=== PATIENT | female | born 1965 | race Caucasian/White ===

== ENCOUNTER 2017-10-28 11:06 | Emergency (ER) | payer OTHER ==
[~2017-10-28] VITALS: Ht 157.5 cm; Wt 59.0 kg
[2017-10-28 11:16] VITALS: BP_SYST 164
[2017-10-28] MEDS ORDERED: LORazepam 1 MG TABLET PO ONE (11:30)
[2017-10-28 12:39] VITALS: BP_SYST 140
== END 2017-10-28 12:39 ==
LOC: SED 11:06
DX: F41.9 Anxiety disorder, unspecified (principal); F32.9 Major depressive disorder, single episode, unspecified; R03.0 Elevated blood-pressure reading, without diagnosis of hypertension; Z88.5 Allergy status to narcotic agent; Z88.6 Allergy status to analgesic agent
CPT/HCPCS: 93005; 99284

== ENCOUNTER 2018-01-07 20:04 | Emergency (ER) | payer OTHER ==
[~2018-01-07] VITALS: Ht 160 cm; Wt 81.6 kg
[2018-01-07 20:11] VITALS: BP_SYST 161
[2018-01-07] MEDS ORDERED: PROMETHAZINE HCL 25 MG/ML AMP IVP ONE (20:45)
[2018-01-07] MEDS ORDERED: KETOROLAC TROMETHAMINE 30 MG VIAL IVP ONE (20:45)
[2018-01-07] MEDS ORDERED: cloNIDine HCL 0.1 MG TABLET PO ONE (20:45)
[2018-01-07 20:54] LABS: BASOPHILS % (AUTO) 0.4 % (0.0-2.0); EOSINOPHILS # (AUTO) 0.1 K/uL (0.0-0.4); EOSINOPHILS % (AUTO) 1.6 % (0.0-4.0); HEMATOCRIT 45.6 % (36-48); HEMOGLOBIN 15.7 g/dL (12.0-16.0); LYMPHOCYTES # (AUTO) 1.6 K/uL (1.0-5.5); MEAN CORPUSCULAR HEMOGLOBIN 32 pg (27-31); MEAN CORPUSCULAR HGB CONC 34 % (32-36); MEAN CORPUSCULAR VOLUME 94 fL (79.0-98.0); MONOCYTES # (AUTO) 0.5 K/uL (0.0-1.0); MONOCYTES % (AUTO) 5.1 % (1.7-9.3); NEUTROPHILS # (AUTO) 6.7 K/uL (1.8-7.7); NEUTROPHILS % (AUTO) 74.9 % (40.0-70.0); PLATELET COUNT (AUTO) 174 K/uL (130-430); RED BLOOD CELL COUNT(AUTO) 4.85 MIL/uL (4.2-6.2); WHITE BLOOD COUNT (AUTO) 8.9 K/uL (4.8-10.8)
[2018-01-07 21:08] LABS: ANION GAP 12 (5-15); CALCIUM 8.9 mg/dL (8.4-11.0); CHLORIDE 102 mmol/L (98-107); GLUCOSE 159 mg/dL (70-99); POTASSIUM 3.6 mmol/L (3.5-5.1); SODIUM SERUM 138 mmol/L (136-145); UREA NITROGEN, BLOOD 13 mg/dL (8-21)
[2018-01-07 21:12] LABS: PROTHROMBIN TIME 10.6 SECS (9.5-12.5)
[2018-01-07 21:15] LABS: ALANINE AMINOTRANSFERASE 51 U/L (12-78); ALBUMIN 3.7 g/dL (3.4-4.8); ALCOHOL, BLOOD < 3 mg/dL (<10); ASPARTATE AMINOTRANSFERASE 38 U/L (10-37); GFR AFRICAN AMERICAN 61 mL/min (>90); LIPASE 291 U/L (73-393); TOTAL BILIRUBIN 0.6 mg/dL (0.0-1.0)
[2018-01-07 21:41] LABS: BILIRUBIN,URINE NEGATIVE (NEGATIVE); CLARITY/URINE CLEAR (CLEAR); COLOR,URINE YELLOW (YELLOW); GLUCOSE,URINE NEGATIVE (NEGATIVE); KETONES,URINE NEGATIVE (NEGATIVE); LEUKOCYTE ESTERASE ,URINE 1+ (NEGATIVE); NITRITE, URINE POSITIVE (NEGATIVE); PROTEIN URINE NEGATIVE (NEGATIVE); UROBILINOGEN,URINE 0.2 (0.2-1.0)
[2018-01-07 21:42] LABS: BLOOD, URINE TRACE (NEGATIVE)
[2018-01-07 22:06] LABS: BACTERIA,URINE MANY /HPF (None Seen); MUCUS,URINE 1+ /LPF (None Seen)
[2018-01-07 22:16] LABS: BARBITURATE, URINE NEGATIVE (NEG <=200); BENZODIAZEPINE, URINE POSITIVE (NEG <=150); CANNABINOID, URINE NEGATIVE (NEG <=50); COCAINE, URINE NEGATIVE (NEG <=150); METHAMPHETAMINES SCREEN,URINE NEGATIVE (NEG <=500); OPIATE, URINE NEGATIVE (NEG <=100); PHENCYCLIDINE SCREEN,URINE NEGATIVE (NEG <=25); UR TRICYCLIC ANTIDEPRESSANTS NEGATIVE (NEG <=300); URINE AMPHETAMINE NEGATIVE (NEG <=500); URINE METHADONE NEGATIVE (NEG <=200); URINE OXYCODONE SCREEN NEGATIVE (NEG <=100); URINE PROPOXYPHENE SCREEN NEGATIVE (NEG <=300)
[2018-01-07 22:40] VITALS: BP_SYST 158
== END 2018-01-07 22:40 | disposition home or self-care (01) ==
LOC: SED 20:04
DX: G44.209 Tension-type headache, unspecified, not intractable (principal); N39.0 Urinary tract infection, site not specified; I10 Essential (primary) hypertension; F41.9 Anxiety disorder, unspecified; F32.9 Major depressive disorder, single episode, unspecified; J45.909 Unspecified asthma, uncomplicated; Z88.6 Allergy status to analgesic agent; Z88.8 Allergy status to other drugs, medicaments and biological substances
CPT/HCPCS: 36415; 70450; 71045; 80053; 80307; 81000; 82550; 83690; 84484; 85025; 85610; 85730; 87086; 87186; 93005; 96374; 96375; 99285; G0482; J1885; J2550

== ENCOUNTER 2018-03-18 20:29 | Emergency (ER) | payer OTHER ==
[~2018-03-18] VITALS: Ht 160 cm; Wt 78.5 kg
[2018-03-18 20:38] VITALS: BP_SYST 155
[2018-03-18] MEDS ORDERED: NACL 0.9% 1,000 ML IV ONE (21:39)
[2018-03-18] MEDS ORDERED: ONDANSETRON HCL 4 MG/2 ML VIAL IVP ONE (21:45)
[2018-03-18 22:01] LABS: BASOPHILS # (AUTO) 0.1 K/uL (0.0-0.2); BASOPHILS % (AUTO) 0.6 % (0.0-2.0); EOSINOPHILS # (AUTO) 0.3 K/uL (0.0-0.4); EOSINOPHILS % (AUTO) 2.8 % (0.0-4.0); HEMATOCRIT 48.3 % (36-48); HEMOGLOBIN 16.5 g/dL (12.0-16.0); LYMPHOCYTES # (AUTO) 1.9 K/uL (1.0-5.5); MEAN CORPUSCULAR HEMOGLOBIN 32 pg (27-31); MEAN CORPUSCULAR HGB CONC 34 % (32-36); MEAN CORPUSCULAR VOLUME 95 fL (79.0-98.0); MONOCYTES # (AUTO) 0.5 K/uL (0.0-1.0); MONOCYTES % (AUTO) 5.6 % (1.7-9.3); NEUTROPHILS # (AUTO) 6.2 K/uL (1.8-7.7); PLATELET COUNT (AUTO) 167 K/uL (130-430); RED BLOOD CELL COUNT(AUTO) 5.08 MIL/uL (4.2-6.2)
[2018-03-18 22:07] LABS: CALCIUM 9.5 mg/dL (8.4-11.0); CREATININE 0.83 mg/dL (0.55-1.30); POTASSIUM 3.5 mmol/L (3.5-5.1)
[2018-03-18 22:13] LABS: ALBUMIN 3.9 g/dL (3.4-4.8); TOTAL BILIRUBIN 0.5 mg/dL (0.0-1.0)
[2018-03-18 22:32] LABS: BILIRUBIN,URINE NEGATIVE (NEGATIVE); CLARITY/URINE CLEAR (CLEAR); COLOR,URINE YELLOW (YELLOW); GLUCOSE,URINE NEGATIVE (NEGATIVE); KETONES,URINE NEGATIVE (NEGATIVE); LEUKOCYTE ESTERASE ,URINE TRACE (NEGATIVE); NITRITE, URINE NEGATIVE (NEGATIVE); PROTEIN URINE NEGATIVE (NEGATIVE); UROBILINOGEN,URINE 0.2 (0.2-1.0)
[2018-03-18 22:34] LABS: BLOOD, URINE TRACE (NEGATIVE)
[2018-03-18] MEDS: cloNIDine HCL 0.1 MG TABLET PO ONE ×2 (22:42→23:08)
[2018-03-18 22:44] LABS: BACTERIA,URINE RARE /HPF (None Seen)
[2018-03-18 22:45] LABS: MUCUS,URINE None Seen /LPF (None Seen); YEAST,URINE None Seen /HPF (None Seen)
[2018-03-18] MEDS ORDERED: cloNIDine HCL 0.1 MG TABLET ONE (23:12)
[2018-03-19 00:31] VITALS: BP_SYST 151
== END 2018-03-19 00:31 | disposition home or self-care (01) ==
LOC: SED 20:29
DX: G43.909 Migraine, unspecified, not intractable, without status migrainosus (principal); R11.2 Nausea with vomiting, unspecified; I10 Essential (primary) hypertension; F41.9 Anxiety disorder, unspecified; F32.9 Major depressive disorder, single episode, unspecified; J45.909 Unspecified asthma, uncomplicated; Z88.6 Allergy status to analgesic agent; Z88.8 Allergy status to other drugs, medicaments and biological substances
CPT/HCPCS: 36415; 80053; 81000; 85025; 96361; 96374; 99284; J2405; J7030

== ENCOUNTER 2018-12-19 19:09 | Emergency (ER) | payer OTHER ==
[~2018-12-19] VITALS: Ht 160 cm; Wt 86.2 kg
[2018-12-19 19:16] VITALS: BP_SYST 158
--- NOTE | 2018-12-19 19:19 | NUR ---
Patient to ER bed 07 to gown for evaluation. Side rails up.
--- NOTE | 2018-12-19 19:20 | NUR ---
Pt brought by self, ambulatory, A&Ox4, pt presents to ER with pain on R elbow, R knee and L neck post slip and fall, skin pink and warm, cap refill <3, VSS, respirations even and unlabored, no s/s of bleeding.
--- NOTE | 2018-12-19 20:30 | NUR ---
Dr Gomez at bedside examining patient
--- NOTE | 2018-12-19 21:00 | NUR ---
Pt off the unit for CT
[2018-12-19 21:26] LABS: BASOPHILS # (AUTO) 0.1 K/uL (0.0-0.2); BASOPHILS % (AUTO) 0.6 % (0.0-2.0); EOSINOPHILS # (AUTO) 0.2 K/uL (0.0-0.4); EOSINOPHILS % (AUTO) 1.8 % (0.0-4.0); HEMATOCRIT 44.7 % (36-48); HEMOGLOBIN 15.7 g/dL (12.0-16.0); MEAN CORPUSCULAR HEMOGLOBIN 33 pg (27-31); MEAN CORPUSCULAR HGB CONC 35 % (32-36); MEAN CORPUSCULAR VOLUME 95 fL (79.0-98.0); MONOCYTES # (AUTO) 0.6 K/uL (0.0-1.0); MONOCYTES % (AUTO) 5.6 % (1.7-9.3); NEUTROPHILS # (AUTO) 7.8 K/uL (1.8-7.7); PLATELET COUNT (AUTO) 201 K/uL (130-430); RED BLOOD CELL COUNT(AUTO) 4.72 MIL/uL (4.2-6.2); WHITE BLOOD COUNT (AUTO) 10.7 K/uL (4.8-10.8)
--- NOTE | 2018-12-19 21:29 | NUR ---
Pt on stable condition, VSS , respirations even and unlabored
[2018-12-19 21:45] LABS: CALCIUM 9.3 mg/dL (8.4-11.0); CREATININE 0.87 mg/dL (0.55-1.30); POTASSIUM 3.3 mmol/L (3.5-5.1)
[2018-12-19 21:57] LABS: ALBUMIN 3.4 g/dL (3.4-4.8); TOTAL BILIRUBIN 0.5 mg/dL (0.0-1.0)
--- NOTE | 2018-12-19 23:10 | NUR ---
Patient given written and verbal discharge instructions and verbalizes understanding. ER MD discussed with patient the results and treatment provided. Patient in stable condition. ID arm band removed. no Rx of given. Patient educated on pain management and to follow up with PMD. Pain Scale 0/10. Opportunity for questions provided and answered. Medication side effect fact sheet provided.
[2018-12-19 23:11] VITALS: BP_SYST 140
== END 2018-12-19 23:10 | disposition home or self-care (01) ==
LOC: SED 19:09
DX: M54.2 Cervicalgia (principal); M79.641 Pain in right hand; M25.561 Pain in right knee; F41.9 Anxiety disorder, unspecified; F32.9 Major depressive disorder, single episode, unspecified; Z88.6 Allergy status to analgesic agent; Z88.8 Allergy status to other drugs, medicaments and biological substances; W01.198A Fall on same level from slipping, tripping and stumbling with subsequent striking against other object, initial encounter; Y93.89 Activity, other specified; Y92.89 Other specified places as the place of occurrence of the external cause; Y99.8 Other external cause status
CPT/HCPCS: 36415; 70450-TC; 72125-TC; 72170-TC; 80053; 85025; 99284

== ENCOUNTER 2018-12-25 18:13 | Emergency (ER) | payer OTHER ==
[~2018-12-25] VITALS: Ht 160 cm; Wt 86.2 kg
[2018-12-25 18:30] VITALS: BP_SYST 149
--- NOTE | 2018-12-25 18:35 | NUR ---
Pt placed in bed 5. Pt was able to amb[facility]
--- NOTE | 2018-12-25 18:44 | NUR ---
Patient stated that she slipped and fell on a pile of ice at a fast food restaurant and landed on her right knee. Pt states having 7/10 right knee pain at the moment.
[2018-12-25] MEDS ORDERED: KETOROLAC TROMETHAMINE 60 MG/2 ML VIAL IM ONE (18:45)
--- NOTE | 2018-12-25 18:50 | NUR ---
ER at bedside examining patient.
--- NOTE | 2018-12-25 19:10 | NUR ---
Report given to NOC shift nurse. Medicated the pt with Toradol im per MD order.
--- NOTE | 2018-12-25 19:26 | NUR ---
Navi wrap placed on RT Knee, tolerated well. Pulses and ROM present before and after.
[2018-12-25 20:03] VITALS: BP_SYST 149
--- NOTE | 2018-12-25 20:03 | NUR ---
Patient given written and verbal discharge instructions by Dr. العراقي and verbalizes understanding. ER MD discussed with patient the results and treatment provided. Patient in stable condition. ID arm band removed. Rx of Naprosyn given. Patient educated on pain management and to follow up with PMD. Pain Scale 0/10. Opportunity for questions provided and answered. Medication side effect fact sheet provided.
== END 2018-12-25 20:03 | disposition home or self-care (01) ==
LOC: SED 18:13
DX: S80.01XA Contusion of right knee, initial encounter (principal); F41.9 Anxiety disorder, unspecified; F32.9 Major depressive disorder, single episode, unspecified; R03.0 Elevated blood-pressure reading, without diagnosis of hypertension; Z88.6 Allergy status to analgesic agent; Z88.8 Allergy status to other drugs, medicaments and biological substances; W01.0XXA Fall on same level from slipping, tripping and stumbling without subsequent striking against object, initial encounter; Y93.89 Activity, other specified; Y92.511 Restaurant or cafe as the place of occurrence of the external cause; Y99.8 Other external cause status
CPT/HCPCS: 73564; 96372; 99283; J1885

== ENCOUNTER 2019-09-19 23:30 | Emergency (ER) | payer OTHER ==
[~2019-09-19] VITALS: Ht 160 cm; Wt 86.2 kg
[2019-09-19 23:47] VITALS: BP_SYST 145
[2019-09-20] MEDS ORDERED: MORPHINE 2 MG/ML INJ. SYRINGE IM ONE (00:15)
[2019-09-20 01:00] VITALS: BP_SYST 152
== END 2019-09-20 01:00 | disposition home or self-care (01) ==
LOC: SED 23:30
DX: M79.7 Fibromyalgia (principal); J45.909 Unspecified asthma, uncomplicated; F41.0 Panic disorder [episodic paroxysmal anxiety]; Z88.6 Allergy status to analgesic agent; Z88.5 Allergy status to narcotic agent
CPT/HCPCS: 96372; 99283; J2270

== ENCOUNTER 2019-09-27 22:40 | Emergency (ER) | payer OTHER ==
[~2019-09-27] VITALS: Ht 160 cm; Wt 86.2 kg
[2019-09-27 22:45] VITALS: BP_SYST 149
--- NOTE | 2019-09-27 22:45 | NUR ---
Pt ambulatory to bed 6 for evaluation
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
--- NOTE | 2019-09-27 22:50 | NUR ---
ER at bedside examining patient.
[2019-09-28] MEDS ORDERED: HYDROcodone/ACETAMIN 7.5-325 MG TAB PO ONE
--- NOTE | 2019-09-28 01:05 | NUR ---
Patient reports pain 6/10 60 minutes after administration of pain medication. No adverse reactions noted. Will continue to monitor. Pt reports that pain is improving.
[2019-09-28 01:15] VITALS: BP_SYST 148
--- NOTE | 2019-09-28 01:15 | NUR ---
Patient given written and verbal discharge instructions and verbalizes understanding. ER Dr. Arcelia MURPHY discussed with patient the results and treatment provided. Patient in stable condition. ID arm band removed. Rx of given. Patient educated on pain management and to follow up with PMD. Pain Scale 6/10 Opportunity for questions provided and answered. Medication side effect fact sheet provided.
== END 2019-09-28 01:15 | disposition home or self-care (01) ==
LOC: SED 22:40
DX: R07.89 Other chest pain (principal); R07.81 Pleurodynia; Z88.6 Allergy status to analgesic agent; Z79.899 Other long term (current) drug therapy
CPT/HCPCS: 71100; 99283

== ENCOUNTER 2020-10-12 11:27 | Emergency (ER) | payer OTHER ==
[~2020-10-12] VITALS: Ht 167.6 cm; Wt 90.7 kg
[2020-10-12 11:37] VITALS: BP_SYST 152
[2020-10-12] MEDS ORDERED: ACET-2634 PO (11:48)
[2020-10-12 12:25] VITALS: BP_SYST 152
== END 2020-10-12 12:26 | disposition home or self-care (01) ==
LOC: SED 11:27
DX: M72.2 Plantar fascial fibromatosis (principal); J45.909 Unspecified asthma, uncomplicated; F41.9 Anxiety disorder, unspecified; F32.9 Major depressive disorder, single episode, unspecified; Z88.5 Allergy status to narcotic agent; Z88.6 Allergy status to analgesic agent
CPT/HCPCS: 99282